=== PATIENT | female | born 1980 | race Caucasian/White ===

== ENCOUNTER 2016-08-17 18:51 | Emergency (ER) | payer OTHER ==
[2016-08-17] MEDS ORDERED: Acetaminophen TAB* 325 MG PO ONE (19:25)
--- NOTE | 2016-08-17 19:56 | ED ---
Lower Extremity - HPI Summary HPI Summary: 35 F presents with left foot pain today. she states that she was walking down the stairs when she missed a stair and landed flat footed. She states thought the pain is located on the top of the foot over the first cuneiform. She was able to ambulate afterwards but since then the pain has increased and the swelling increased. She has fractured her 3-5 metatarsal before without any plates but in. She denies any numbness or tingling. - History of Current Complaint Pain Intensity: 7 <Sarah Bailey - Last Filed: 08/17/16 21:15> <Merrill Waldrop - Last Filed: 08/31/16 22:17> - History of Current Complaint Chief Complaint: EDExtremityLower Stated Complaint: POSS BROKEN LEFT FOOT Time Seen by Provider: 08/17/16 19:04 - Allergies/Home Medications Allergies/Adverse Reactions: Allergies Allergy/AdvReac Type Severity Reaction Status Date / Time No Known Allergies Allergy Verified 03/21/16 20:31 PMH/Surg Hx/FS Hx/Imm Hx Endocrine/Hematology History: Denies: Hx Diabetes Cardiovascular History: Denies: Hx Hypertension Infectious Disease History: No Infectious Disease History: Denies: Traveled Outside the [place] in Last 30 Days - Family History Known Family History: Positive: Other - no Hx of stroke or anuerysm Negative: Cardiac Disease, Hypertension, Diabetes - Social History Alcohol Use: None Substance Use Type: Reports: None Smoking Status (MU): Never Smoked Tobacco Have You Smoked in the Last Year: No <Sarah Bailey - Last Filed: 08/17/16 21:15> Review of Systems Negative: Fever Negative: Chest Pain Negative: Shortness Of Breath Positive: Myalgia - left foot pain All Other Systems Reviewed And Are Negative: Yes <Sarah Bailey - Last Filed: 08/17/16 21:15> Physical Exam Triage Information Reviewed: Yes Vital Signs On Initial Exam: Initial Vitals Temp Pulse Resp BP Pulse Ox 98.0 F 82 15 126/68 100 08/17/16 18:57 08/17/16 18:57 08/17/16 18:57 08/17/16 18:57 08/17/16 18:57 Vital Signs Reviewed: Yes Appearance: Positive: Well-Appearing Skin: Positive: Warm, Dry Head/Face: Positive: Normal Head/Face Inspection Eyes: Positive: Normal, Conjunctiva Clear ENT: Positive: Normal ENT inspection, Pharynx normal, TMs normal Respiratory/Lung Sounds: Positive: Clear to Auscultation, Breath Sounds Present Cardiovascular: Positive: Normal, RRR Musculoskeletal: Positive: Strength/ROM Intact - of left ankle and toes, Other - edema noted on anteroir aspect of foot near 1-3st metatarsal and tenderness at location, <Sarah Bailey - Last Filed: 08/17/16 21:15> Vital Signs On Initial Exam: Initial Vitals Temp Pulse Resp BP Pulse Ox 98.0 F 82 15 126/68 100 08/17/16 18:57 08/17/16 18:57 08/17/16 18:57 08/17/16 18:57 08/17/16 18:57 <Merrill Waldrop - Last Filed: 08/31/16 22:17> Diagnostics - Vital Signs Vital Signs Temp Pulse Resp BP Pulse Ox 08/17/16 18:57 98.0 F 82 15 126/68 100 <Sarah Bailey - Last Filed: 08/17/16 21:15> - Vital Signs Vital Signs Temp Pulse Resp BP Pulse Ox 08/17/16 21:23 98.2 F 92 15 118/72 08/17/16 18:57 98.0 F 82 15 126/68 100 <Merrill Waldrop - Last Filed: 08/31/16 22:17> Lower Extremity Course/Dx - Course Course Of Treatment: 35 F presents with left foot pain today and falling on some stairs. landed flat footed. was able to ambulate afterwards but since then pain has increased. Full ROM of ankle. pain located over first cuneiform. xray normal has old fracture of 5th metatarsal did not see lisfranc fx on xray, will treat conseravitively, advised that if no improvement follow up with PCP for repeat xray, patient understands and agrees with plan - Diagnoses Differential Diagnosis/HQI/PQRI: Positive: Contusion, Fracture (Closed), Sprain , Strain <Sarah Bailey - Last Filed: 08/17/16 21:15> - Course Assessment/Plan: Patient not presented, seen or examen by tx WR <Merrill Waldrop - Last Filed: 08/31/16 22:17> - Diagnoses Provider Diagnoses: Injury of left foot Discharge <Sarah Bailey - Last Filed: 08/17/16 21:15> <Merrill Waldrop - Last Filed: 08/31/16 22:17> - Discharge Plan Condition: Good Disposition: HOME Patient Education Materials: Foot Contusion (ED) Referrals: No Primary Care Phys,NOPCP [Primary Care Provider] - Additional Instructions: Take Tylenol or ibuprofen every 6 hours as needed for pain Apply ice, rest, elevate Follow up with primary care physician within 5 days if no improvement Return to ED if develop numbness, tingling, inability to move joint, or any new or worsening symptoms
--- NOTE | 2016-08-17 20:53 | RAD ---
INDICATION: Pain over the tarsal bones after "rolling ankle coming down stairs" COMPARISON: None. TECHNIQUE: 3 views of the left ankle and 3 views of the left foot were obtained. FINDINGS: There is cortical irregularity involving the distal metaphysis of the left fifth metatarsal. There are no prior foot radiographs for comparison but this has a chronic appearance. Elsewhere the adequately corticated bones are properly aligned. Joint spaces appear maintained. No acute fracture, dislocation or focal bony abnormality is seen. A bony focus at the posterior aspect of the talocalcaneal joint could be seen in the setting of os trigonum. IMPRESSION: 1. CORTICAL IRREGULARITY INVOLVING THE DISTAL FIFTH METATARSAL IS EITHER A CONGENITAL VARIANT OR SITE OF PREVIOUSLY HEALED FRACTURE. PLEASE CORRELATE TO THE PATIENT'S CLINICAL HISTORY. 2. NO ACUTE FRACTURE OR DISLOCATION IDENTIFIED. If the patient's symptoms persist, follow-up imaging is recommended.
[2016-08-17 21:24] VITALS: BP 118/72
== END 2016-08-17 21:23 | disposition home or self-care (01) ==
LOC: ED 18:51
DX: S99.922A Unspecified injury of left foot, initial encounter (principal); M79.672 Pain in left foot; X50.0XXA Overexertion from strenuous movement or load, initial encounter; X50.9XXA Other and unspecified overexertion or strenuous movements or postures, initial encounter; Y93.9 Activity, unspecified; Y92.9 Unspecified place or not applicable
CPT/HCPCS: 99282; A9270-GY

== ENCOUNTER 2017-03-27 16:56 | Emergency (ER) | payer OTHER | END 2017-03-27 21:03 | disposition left against medical advice (07) | LOC: UCEAST 16:56 | DX: S49.90XA Unspecified injury of shoulder and upper arm, unspecified arm, initial encounter (principal); X58.XXXA Exposure to other specified factors, initial encounter; Y93.9 Activity, unspecified; Y92.9 Unspecified place or not applicable; Z53.21 Procedure and treatment not carried out due to patient leaving prior to being seen by health care provider ==

== ENCOUNTER 2017-03-27 18:23 | Emergency (ER) | payer OTHER ==
[2017-03-27 19:00] VITALS: BP 129/78
--- NOTE | 2017-03-27 20:09 | RAD ---
INDICATION: 2 weeks of atraumatic left shoulder pain COMPARISON: None. TECHNIQUE: 4 views of the left shoulder were obtained. FINDINGS: The adequately corticated bones are in normal alignment. Joint spaces appear maintained. No fracture, dislocation or focal bony abnormality is seen. IMPRESSION: Normal radiograph of the left shoulder. If the patient's symptoms persist, follow-up imaging is recommended.
[2017-03-27] MEDS ORDERED: oxyCODONE/Acetamin 5/325 MG* TAB PO ONE (20:17)
--- NOTE | 2017-03-27 23:54 | ED ---
Yani Turner Rebecca, scribed for Everton Hernándezuel on 03/27/17 at 2020 . Upper Extremity Pain - HPI Summary HPI Summary: Pt is a 36 y/o F who presents to ED c/o L shoulder pain. Pain has been present for 2 weeks, especially worse today. 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 Currently, pain is moderate, ranked 4/10. Has been treating with Ibuprofen at night to aid with sleep as well as ice and heat. Sx aggravated by movement and ADL, alleviated slightly by Ibuprofen. States it is particularly painful to lift her arm overhead. Denies fever and pain in the elbow. - History of Current Complaint Chief Complaint: EDExtremityUpper Stated Complaint: LT SHOULDER PAIN Time Seen by Provider: 03/27/17 20:02 Hx Obtained From: Patient Mechanism Of Injury: Unknown Onset/Duration: Started Weeks Ago - 2 weeks, Still Present, Worse Since - today Severity Currently: Moderate - 4/10 Pain Location: Shoulder - Left Aggravating Factor(s): Movement, Other - ADLs Alleviating Factor(s): OTC Meds - Ibuprofen Associated Signs & Symptoms: Positive: Negative - Allergies/Home Medications Allergies/Adverse Reactions: Allergies Allergy/AdvReac Type Severity Reaction Status Date / Time Sulfa Antibiotics Allergy Unknown Verified 03/27/17 19:47 Reaction Details PMH/Surg Hx/FS Hx/Imm Hx Endocrine/Hematology History: Denies: Hx Diabetes Cardiovascular History: Denies: Hx Hypertension Infectious Disease History: No Infectious Disease History: Denies: Traveled Outside the [place] in Last 30 Days - Family History Known Family History: Positive: Other - no Hx of stroke or anuerysm Negative: Cardiac Disease, Hypertension, Diabetes - Social History Alcohol Use: Weekly Substance Use Type: Reports: None Smoking Status (MU): Never Smoked Tobacco Have You Smoked in the Last Year: No Review of Systems Negative: Fever Positive: Arthralgia - L shoulder pain; NEGATIVE: L elbow pain All Other Systems Reviewed And Are Negative: Yes Physical Exam - Summary Physical Exam Summary: Appearance: Well appearing, no pain distress Skin: warm, dry, reflects adequate perfusion Head/face: normal Eyes: EOMI, ALYCE ENT: normal Neck: supple, nontender Respiratory: CTA, breath sounds present Cardiovascular: RRR, pulses symmetrical Abdomen: nontender, soft Bowel: present Musculoskeletal: Tenderness over the L shoulder, mild restriction of the shoulder ROM, no neurovascular deficits Neuro: normal, sensory motor intact, A&Ox3 Triage Information Reviewed: Yes Vital Signs On Initial Exam: Initial Vitals Temp Pulse Resp BP Pulse Ox 97.7 F 78 18 129/78 99 03/27/17 18:55 03/27/17 18:55 03/27/17 18:55 03/27/17 18:55 03/27/17 18:55 Vital Signs Reviewed: Yes Diagnostics - Vital Signs Vital Signs Temp Pulse Resp BP Pulse Ox 03/27/17 18:55 97.7 F 78 18 129/78 99 - Laboratory Lab Statement: Any lab studies that have been ordered have been reviewed, and results considered in the medical decision making process. - Radiology Shoulder XR Xray Interpretation: No Acute Changes - Normal radiograph of the left shoulder. If the patient's symptoms persist, follow-up imaging is recommended. ED physician reviewed radiology report and agrees. Radiology Interpretation Completed By: Radiologist Course/Dx - Course Course Of Treatment: Pt is a 36 y/o F who presents to ED c/o L shoulder pain for 2 weeks, especially worse today. 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 Currently, pain is moderate, ranked 4/10. Has been treating with Ibuprofen at night to aid with sleep as well as ice and heat. Sx aggravated by movement and ADL, alleviated slightly by Ibuprofen. Denies fever and pain in the elbow. Shoulder XR reveals no acute findings. Pt will be D/C to home with Dx of shoulder pain and shoulder bursitis with Rx for Percocet and Motrin with a follow up with Dr. Steiner ( orthopedics). She understands and agrees. Elevated BP noted and advised to f/u. Delinced arm sling when offered. - Diagnoses Provider Diagnoses: Shoulder strain, Shoulder bursitis Discharge - Discharge Plan Condition: Stable Disposition: HOME Prescriptions: Ibuprofen TAB* [Motrin TAB* 600 MG] 600 mg PO Q8H PRN #21 tab MDD 3 PRN Reason: Pain oxyCODONE/Acetamin 5/325 MG* [Percocet 5/325 TAB*] 1 tab PO Q8H PRN #10 tab MDD 3 PRN Reason: Pain Patient Education Materials: Shoulder Bursitis (ED) Referrals: Yeyo Steiner MD [Medical Doctor] - 3 Days The documentation as recorded by the Yani dodge Rebecca accurately reflects the service I personally performed and the decisions made by , Reji Hernández.
== END 2017-03-27 20:25 | disposition home or self-care (01) ==
LOC: ED 18:23
DX: M25.512 Pain in left shoulder (principal); S46.912A Strain of unspecified muscle, fascia and tendon at shoulder and upper arm level, left arm, initial encounter; M75.52 Bursitis of left shoulder; X58.XXXA Exposure to other specified factors, initial encounter; Y93.9 Activity, unspecified; Y92.9 Unspecified place or not applicable
CPT/HCPCS: 99282; A9270-GY

== ENCOUNTER 2017-11-25 19:00 | Emergency (ER) | payer OTHER ==
[2017-11-25 19:17] VITALS: BP 126/83
[2017-11-25] MEDS ORDERED: Ibuprofen TAB* 400 MG PO ONE (19:39)
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
== END 2017-11-25 19:55 | disposition home or self-care (01) ==
LOC: UCEAST 19:00
DX: T21.22XA Burn of second degree of abdominal wall, initial encounter (principal); T31.0 Burns involving less than 10% of body surface; X12.XXXA Contact with other hot fluids, initial encounter; Y93.9 Activity, unspecified; Y92.9 Unspecified place or not applicable; Z88.2 Allergy status to sulfonamides
CPT/HCPCS: 16020; 99212; A9270-GY; G0463

== ENCOUNTER → 2018-09-11 09:59 | Emergency (ER) | payer OTHER ==
[2018-09-11 10:10] VITALS: BP 135/83
--- NOTE | 2018-09-11 10:24 | ED ---
Lower Extremity - HPI Summary HPI Summary: Patient is a 38-year-old female who presents emergency department for a left ankle injury that occurred last night. Patient states she slipped walking down steps and inverted her left ankle. No other injuries were sustained. Patient states she's having a lot of pain with ambulation today and presents with crutches. Symptoms are mild in severity. Walking makes symptoms worse. Rest makes symptoms better. - History of Current Complaint Chief Complaint: EDExtremityLower Stated Complaint: LEFT ANKLE PAIN PER PT Time Seen by Provider: 09/11/18 10:10 Hx Obtained From: Patient Pain Intensity: 7 - Allergies/Home Medications Allergies/Adverse Reactions: Allergies Allergy/AdvReac Type Severity Reaction Status Date / Time Sulfa (Sulfonamide Allergy Unknown Verified 09/11/18 10:06 Antibiotics) Reaction Details PMH/Surg Hx/FS Hx/Imm Hx Previously Healthy: Yes Endocrine/Hematology History: Denies: Hx Diabetes Cardiovascular History: Denies: Hx Hypertension Infectious Disease History: No Infectious Disease History: Denies: Traveled Outside the [place] in Last 30 Days - Family History Known Family History: Positive: Other - no Hx of stroke or anuerysm Negative: Cardiac Disease, Hypertension, Diabetes - Social History Occupation: Unemployed Lives: With Family Alcohol Use: Weekly Substance Use Type: Reports: None Smoking Status (MU): Never Smoked Tobacco Have You Smoked in the Last Year: No Review of Systems Positive: Other - left ankle pain Skin: Negative Negative: Weakness, Paresthesia, Numbness All Other Systems Reviewed And Are Negative: Yes Physical Exam Triage Information Reviewed: Yes Vital Signs On Initial Exam: Initial Vitals Temp Pulse Resp BP Pulse Ox 96.9 F 98 16 135/83 97 09/11/18 10:00 09/11/18 10:00 09/11/18 10:00 09/11/18 10:00 09/11/18 10:00 Vital Signs Reviewed: Yes Appearance: Positive: Well-Appearing - Pt. sitting in chair in NAD. Family present. Skin: Positive: Warm, Dry Head/Face: Positive: Normal Head/Face Inspection Eyes: Positive: Normal, EOMI Neck: Positive: Supple Musculoskeletal: Positive: Other - Moderate left edema to lateral malleolus. Decreased ROM secondary to pain. No foot pain or pain to base of 5th metatarsal. No proximal knee or tib/fib pain. No breaks in the skin. Neurological: Positive: Normal, CN Intact II-III Psychiatric: Positive: Affect/Mood Appropriate Procedures - Splinting Left Lower Extremity Pre-Made Type: aircast Pre-Proc Neuro Vasc Exam: normal Post-Proc Neuro Vasc Exam: normal Diagnostics - Vital Signs Vital Signs Temp Pulse Resp BP Pulse Ox 09/11/18 10:00 96.9 F 98 16 135/83 97 - Laboratory Lab Statement: Any lab studies that have been ordered have been reviewed, and results considered in the medical decision making process. Lower Extremity Course/Dx - Course Course Of Treatment: Pt. presenting for ankle injury. Xray per radiology: Report: No acute fracture or malalignment evident. Small chronic appearing ossicle. inferior to the medial malleolus. Healed diaphyseal fracture of the fifth metatarsal. noted. Small os trigonum accessory ossicle. Moderate soft tissue swelling over the lateral. malleolus. IMPRESSION: #. Consider lateral supporting ligament injury. Pt. placed in jane wrap and air splint. Pt. brought her own crutches. Will have her f.u with orthopedics for further evaluation. To ice and elevate. NSAIDS for pain as directed. Pt. understands and agrees with plan. - Diagnoses Differential Diagnosis/HQI/PQRI: Positive: Dislocation, Fracture (Closed), Sprain, Strain Provider Diagnoses: Ankle sprain Discharge - Sign-Out/Discharge Documenting (check all that apply): Patient Departure Patient Received Moderate/Deep Sedation with Procedure: No - Discharge Plan Condition: Good Disposition: HOME Patient Education Materials: Ankle Sprain (ED) Referrals: Gilbert Hardin MD [Primary Care Provider] - Matti Blanton MD [Medical Doctor] - Additional Instructions: Schedule a follow up appointment with orthopedics for further evaluation is pain and swelling persist Wear splint for comfort Weight bearing as tolerated Ice and elevated intermittently Tylenol or Motrin for pain as directed Return to ER if symptoms change or worsen - Billing Disposition and Condition Condition: GOOD Disposition: Home
== END | disposition home or self-care (01) ==
LOC: ED 09:59
DX: S93.402A Sprain of unspecified ligament of left ankle, initial encounter (principal); W10.9XXA Fall (on) (from) unspecified stairs and steps, initial encounter; Y92.9 Unspecified place or not applicable; Z88.2 Allergy status to sulfonamides
CPT/HCPCS: 99282

== ENCOUNTER 2018-09-17 17:41 | Emergency (ER) | payer OTHER ==
[2018-09-17 18:14] VITALS: BP 122/79
[2018-09-17 19:25] LABS: Influenza A Molecular POSITIVE (Negative)
--- NOTE | 2018-09-17 19:35 | UC ---
FLU HPI - HPI Summary HPI Summary: pt presents with c/o chills, body aches and St. has known exposure to flu and strep throat. - History of Current Complaint Chief Complaint: UCRespiratory Stated Complaint: SINUS CONGESTION, AND FEVER Time Seen by Provider: 09/17/18 19:11 Hx Obtained From: Patient Hx Last Menstrual Period: continuous bc ?: No Onset/Duration: Sudden Onset, Lasting Days, Still Present Severity Currently: Mild Severity Initially: Mild Pain Intensity: 4 Associated Signs & Symptoms: Positive: Fever, Myalgia, Sore Throat, Nasal Congestion, Headache Related Hx: Possible Flu/Infectious Exposure - Risk Factors Influenza Risk Factors: Negative - Allergy/Home Medications Allergies/Adverse Reactions: Allergies Allergy/AdvReac Type Severity Reaction Status Date / Time Sulfa (Sulfonamide Allergy Unknown Verified 09/17/18 18:14 Antibiotics) Reaction Details Home Medications: Home Medications Ibuprofen TAB* [Motrin TAB* 800 MG] 400 mg PO Q8H 09/17/18 [History] PMH/Surg Hx/FS Hx/Imm Hx Previously Healthy: Yes - Surgical History Surgical History: None - Family History Known Family History: Positive: Other - no Hx of stroke or anuerysm Negative: Cardiac Disease, Hypertension, Diabetes - Social History Occupation: Employed Full-time Lives: With Family Alcohol Use: Rare Substance Use Type: None Smoking Status (MU): Never Smoked Tobacco Have You Smoked in the Last Year: No - Immunization History Vaccination Up to Date: Yes Review of Systems All Other Systems Reviewed And Are Negative: Yes Constitutional: Positive: Fever, Chills, Fatigue Skin: Positive: Negative Eyes: Positive: Negative ENT: Positive: Sore Throat, Sinus Congestion Respiratory: Positive: Cough Cardiovascular: Positive: Negative Gastrointestinal: Positive: Negative Genitourinary: Positive: Negative Motor: Positive: Negative Neurovascular: Positive: Negative Musculoskeletal: Positive: Myalgia Neurological: Positive: Negative Psychological: Positive: Negative Is Patient Immunocompromised?: No Physical Exam Triage Information Reviewed: Yes Appearance: Ill-Appearing Vital Signs: Initial Vital Signs Temp 98.1 F 09/17/18 18:09 Pulse 98 09/17/18 18:09 Resp 16 09/17/18 18:09 BP 122/79 09/17/18 18:09 Pulse Ox 98 09/17/18 18:09 Vital Signs Reviewed: Yes Eye Exam: Normal ENT Exam: Normal Dental Exam: Normal Neck exam: Normal Respiratory Exam: Normal Cardiovascular Exam: Normal Musculoskeletal Exam: Normal Neurological Exam: Normal Psychological Exam: Normal Skin Exam: Normal Flu Course/Dx - Differential Dx/Diagnosis Differential Diagnosis/HQI/PQRI: Influenza Provider Diagnosis: Influenza A Discharge - Sign-Out/Discharge Documenting (check all that apply): Patient Departure All imaging exams completed and their final reports reviewed: No Studies - Discharge Plan Condition: Stable Disposition: HOME Patient Education Materials: Influenza (ED) Referrals: Gilbert Hardin MD [Primary Care Provider] - If Needed - Billing Disposition and Condition Condition: STABLE Disposition: Home
== END 2018-09-17 19:50 | disposition home or self-care (01) ==
LOC: UCEAST 17:41
DX: J10.1 Influenza due to other identified influenza virus with other respiratory manifestations (principal); Z88.2 Allergy status to sulfonamides
CPT/HCPCS: 99211; G0463